=== PATIENT | female | born 1975 | race Caucasian/White ===

== ENCOUNTER 2018-02-28 17:22 | Emergency (ER) | payer MEDICARE ==
[~2018-02-28 17:22] MED LIST: ALBU6.7H INH; ALPR-624 PO; ATEN-169 PO; AZIT250T PO; DULO20CA50 PO; FERR325T28 PO; HYDR12.522 PO; LISI-600 PO; OMEP20TA23 PO
== END 2018-02-28 18:19 | disposition left against medical advice (07) ==
LOC: ER 17:22
DX: R07.81 Pleurodynia (principal); Z53.21 Procedure and treatment not carried out due to patient leaving prior to being seen by health care provider

== ENCOUNTER 2019-08-04 20:58 | Emergency (ER) | payer MEDICARE ==
[~2019-08-04] VITALS: Ht 162.6 cm; Wt 75.0 kg
[~2019-08-04 20:58] MED LIST changes: -ALBU6.7H INH; +ALBU6.7H9 INH; +CYCL-1 PO
[2019-08-04] MEDS ORDERED: atenolol 50mg tablet PO ONE (21:30)
--- NOTE | 2019-08-04 21:45 | NUR ---
PT FRIEND JOE AT BEDSIDE. [phone] IN DOORWAY WITH PT. PT STATES SHE IS OKAY WITH FRIEND AND OFFICER AT ROOM
[2019-08-04] MEDS ORDERED: acetaminophen 325mg tablet PO ONE (22:10)
[2019-08-04] MEDS ORDERED: METH4TAB3 PO (22:38)
[2019-08-04] MEDS ORDERED: METH500T PO (22:38)
[2019-08-04] MEDS ORDERED: dexamethasone 4mg tablet PO ONE (22:40)
--- NOTE | 2019-08-04 23:14 | NUR ---
AWARE OF VITALS. NO NEW ORDERS.
[2019-08-04 23:43] VITALS: BP 183/112
== END 2019-08-04 23:47 ==
LOC: ER 20:59
DX: S46.811A Strain of other muscles, fascia and tendons at shoulder and upper arm level, right arm, initial encounter (principal); S50.11XA Contusion of right forearm, initial encounter; M54.42 Lumbago with sciatica, left side; I10 Essential (primary) hypertension; J45.909 Unspecified asthma, uncomplicated; K21.9 Gastro-esophageal reflux disease without esophagitis; F41.9 Anxiety disorder, unspecified; Z79.2 Long term (current) use of antibiotics; Z79.899 Other long term (current) drug therapy; Z98.890 Other specified postprocedural states; Y04.0XXA Assault by unarmed brawl or fight, initial encounter; Y93.89 Activity, other specified; Y92.098 Other place in other non-institutional residence as the place of occurrence of the external cause; Y99.8 Other external cause status
CPT/HCPCS: 73080; 99284; J8540

== ENCOUNTER 2022-11-04 22:38 | Emergency (ER) | payer MEDICARE ==
[~2022-11-04] VITALS: Ht 162.6 cm; Wt 90.9 kg
[~2022-11-04 22:38] MED LIST changes: +ALBU6.7H14 INH; -ALBU6.7H9 INH; -LISI-600 PO; +LISI20TA28 PO; +METH4TAB3 PO; +METH500T PO
[2022-11-04 23:02] VITALS: BP 167/98
[2022-11-05] MEDS ORDERED: AMOX500C2 PO (00:49)
== END 2022-11-05 01:06 | disposition home or self-care (01) ==
LOC: ER 22:38
DX: K08.89 Other specified disorders of teeth and supporting structures (principal); I10 Essential (primary) hypertension; J45.909 Unspecified asthma, uncomplicated; K21.9 Gastro-esophageal reflux disease without esophagitis; E11.9 Type 2 diabetes mellitus without complications
CPT/HCPCS: 99283

== ENCOUNTER 2023-03-25 20:22 | Emergency (ER) | payer MEDICARE ==
[~2023-03-25] VITALS: Ht 162.6 cm; Wt 73.6 kg
[2023-03-25 20:28] VITALS: BP 181/109
[2023-03-25] MEDS ORDERED: TETanus/Pertussis (Acell)/Diphther VAC/PF (Tdap-Adult) 0.5ml syringe IMVAC ONE ×2 (21:45→22:15)
[2023-03-25] MEDS ORDERED: CEPH250T PO (22:16)
[2023-03-25] MEDS ORDERED: cephalexin 500mg capsule PO ONE (22:19)
[2023-03-25] MEDS ORDERED: cephalexin 250mg capsule PO ONE (22:20)
== END 2023-03-25 22:24 | disposition home or self-care (01) ==
LOC: ER 20:23
DX: S61.412A Laceration without foreign body of left hand, initial encounter (principal); W45.8XXA Other foreign body or object entering through skin, initial encounter; Y93.89 Activity, other specified; Y92.89 Other specified places as the place of occurrence of the external cause; Y99.8 Other external cause status
CPT/HCPCS: 90471; 90715; 99283